=== PATIENT | female | born 1955 | race Caucasian/White ===

== ENCOUNTER → 2020-03-04 | Outpatient (CLI) | payer OTHER ==
[~2020-03-04] MED LIST: ASPIRIN EC81 M1 PO; BLOOD PRESSURE MED; CARVEDILOL25 MG OR; FISH OIL 1,2001 EAC4 PO; HYDROCHLOROTH12.5 MG PO; VITAMIN D1000 UNI1 PO; ZOCOR 20 MG TAB20 M1 PO; ZOLOFT25 MG PO
== END ==
LOC: MRI 12:23 → ULTRA 12:23
PROVIDERS: ATTEND Nurse Practitioner
DX: R60.0 Localized edema (principal)

== ENCOUNTER → 2020-03-11 | Outpatient (CLI) | payer OTHER | LOC: SJCVCIMAG 09:04 | PROVIDERS: ATTEND Family Medicine | DX: I73.9 Peripheral vascular disease, unspecified (principal) ==

== ENCOUNTER → 2020-03-17 | Outpatient (CLI) | payer OTHER | LOC: CAT 10:41 | PROVIDERS: ATTEND Family Medicine | DX: S96.812A Strain of other specified muscles and tendons at ankle and foot level, left foot, initial encounter (principal); G89.29 Other chronic pain; R60.0 Localized edema; X58.XXXA Exposure to other specified factors, initial encounter; Y93.89 Activity, other specified; Y92.89 Other specified places as the place of occurrence of the external cause; Y99.8 Other external cause status ==

== ENCOUNTER → 2020-11-08 | Outpatient (CLI) | payer OTHER | LOC: CAT 09:52 | PROVIDERS: ATTEND Family Medicine | DX: Z12.2 Encounter for screening for malignant neoplasm of respiratory organs (principal); J84.10 Pulmonary fibrosis, unspecified ==